=== PATIENT | male | born 1975 | race Caucasian/White ===

== ENCOUNTER 2019-02-15 14:58 | Emergency (ER) | payer BC ==
[2019-02-15] MEDS: ONDANSETRON 4 MG INJ IV (17:57)
[2019-02-15] MEDS: SOD CHLORIDE 0.9% 1,000 ML IV ×2 (17:57→18:06)
[2019-02-15] MEDS: LIDOCAINE/MYLANTA 40 ML BTL PO (17:57)
[2019-02-15] MEDS: FAMOTIDINE 20 MG INJ IV (17:57)
[2019-02-15 18:03] LABS: ADD MAN DIFF? NO
[2019-02-15 18:07] LABS: WHITE BLOOD COUNT 14.5 10^3/ul (4.8-10.8)
[2019-02-15 18:08] LABS: ABNORMAL IP MESSAGE 1; BASOPHIL # 0.1 10^3/ul (0.0-0.1); BASOPHILS % 0.4 % (0.0-2.0); EOSINOPHILS % 0.1 % (0.0-7.0); HEMATOCRIT 36.9 % (42.0-52.0); HEMOGLOBIN 10.3 g/dl (14.0-18.0); LYMPHOCYTES # 1.6 10^3/ul (0.8-2.9); LYMPHOCYTES % 10.9 % (15.0-51.0); MEAN CORPUSCULAR HEMOGLOBIN 20.1 pg (29.0-33.0); MEAN CORPUSCULAR HGB CONC 27.9 g/dl (32.0-37.0); MEAN CORPUSCULAR VOLUME 71.9 fl (82.0-101.0); MEAN PLATELET VOLUME 9.2 fl (7.4-10.4); MONOCYTE # 0.8 10^3/ul (0.3-0.9); MONOCYTES % 5.5 % (0.0-11.0); NEUTROPHIL # 11.9 10^3/ul (1.6-7.5); NEUTROPHILS % 82.3 % (39.0-77.0); PLATELET COUNT 412 10^3/UL (140-415); POSITIVE DIFF @See below; RED BLOOD COUNT 5.13 10^6/ul (4.70-6.10); RED CELL DISTRIBUTION WIDTH 17.8 % (11.5-14.5)
[2019-02-15 18:25] LABS: ALANINE AMINOTRANSFERASE 18 IU/L (13-69); ALBUMIN 4.5 g/dl (3.3-4.9); ALBUMIN/GLOBULIN RATIO 1.02; ALKALINE PHOSPHATASE 112 IU/L (42-121); ANION GAP 11 (5-13); ASPARTATE AMINO TRANSFERASE 25 IU/L (15-46); BILIRUBIN,INDIRECT 0.3 mg/dl (0-1.1); BILIRUBIN,TOTAL 0.3 mg/dl (0.2-1.3); BLOOD UREA NITROGEN 7 mg/dl (7-20); CALCIUM 10.4 mg/dl (8.4-10.2); CARBON DIOXIDE 28 mmol/L (21-31); CHLORIDE 105 mmol/L (97-110); CREATININE 0.64 mg/dl (0.61-1.24); Estimated GFR > 60 mL/min (>60); GLUCOSE 108 mg/dl (70-220); LIPASE 52 U/L (23-300); POTASSIUM 4.5 mmol/L (3.5-5.1); SODIUM 144 mmol/L (135-144); TOTAL PROTEIN 8.9 g/dl (6.1-8.1)
[2019-02-15 18:27] LABS: INR 0.91; PROTIME 12.4 Sec (11.9-14.9)
[2019-02-15 18:28] LABS: PARTIAL THROMBOPLASTIN TIME 25.8 Sec (23.0-35.0)
[2019-02-15 18:36] LABS: TROPONIN-I < 0.012 ng/ml (0.000-0.120)
== END 2019-02-15 19:38 | disposition home or self-care (01) ==
LOC: FTE 14:58
DX: K92.0 Hematemesis (principal); R19.7 Diarrhea, unspecified; D64.9 Anemia, unspecified; D72.829 Elevated white blood cell count, unspecified; R07.9 Chest pain, unspecified
CPT/HCPCS: 36415; 71045; 80053; 83690; 84484; 85025; 85610; 85730; 93005; 96374; 96375; 99285-25

== ENCOUNTER 2019-05-05 08:23 | Day surgery (SDC) | payer BC ==
[2019-05-05] MEDS ORDERED: PROPOFOL 20 ML (10:18)
[2019-05-05] MEDS ORDERED: ETOMIDATE 20 MG INJ (10:19)
[2019-05-05] MEDS ORDERED: LIDOCAINE 100 MG SYRINGE (10:19)
== END 2019-05-05 11:08 | disposition home or self-care (01) ==
LOC: GIL 08:23
DX: K22.2 Esophageal obstruction (principal); K20.8 Other esophagitis
CPT/HCPCS: 43239; 88104; 88305; 88312

== ENCOUNTER 2019-06-30 14:53 | Inpatient (IN) | payer BC ==
[2019-06-30 15:26] LABS: ADD MAN DIFF? NO
[2019-06-30] MEDS: PANTOPRAZOLE 40 MG INJ IV (15:28)
[2019-06-30 15:30] LABS: BASOPHIL # 0.1 10^3/ul (0.0-0.1); BASOPHILS % 0.5 % (0.0-2.0); EOSINOPHILS # 0.1 10^3/ul (0.0-0.5); EOSINOPHILS % 0.9 % (0.0-7.0); HEMOGLOBIN 12.7 g/dl (14.0-18.0); LYMPHOCYTES # 2.5 10^3/ul (0.8-2.9); LYMPHOCYTES % 21.2 % (15.0-51.0); MEAN CORPUSCULAR HEMOGLOBIN 24.9 pg (29.0-33.0); MEAN CORPUSCULAR HGB CONC 30.2 g/dl (32.0-37.0); MEAN CORPUSCULAR VOLUME 82.4 fl (82.0-101.0); MEAN PLATELET VOLUME 9.1 fl (7.4-10.4); MONOCYTE # 1.1 10^3/ul (0.3-0.9); MONOCYTES % 9.2 % (0.0-11.0); NEUTROPHILS % 67.9 % (39.0-77.0); PLATELET COUNT 302 10^3/UL (140-415); RED CELL DISTRIBUTION WIDTH 16.4 % (11.5-14.5)
[2019-06-30 15:30] LABS: WHITE BLOOD COUNT 11.8 10^3/ul (4.8-10.8)
[2019-06-30 15:46] LABS: ALANINE AMINOTRANSFERASE 18 IU/L (13-69); ALBUMIN 4.6 g/dl (3.3-4.9); ALBUMIN/GLOBULIN RATIO 1.04; ALKALINE PHOSPHATASE 110 IU/L (42-121); ANION GAP 10 (5-13); ASPARTATE AMINO TRANSFERASE 23 IU/L (15-46); BILIRUBIN,INDIRECT 0.4 mg/dl (0-1.1); BILIRUBIN,TOTAL 0.4 mg/dl (0.2-1.3); BLOOD UREA NITROGEN 6 mg/dl (7-20); CALCIUM 10.7 mg/dl (8.4-10.2); CARBON DIOXIDE 32 mmol/L (21-31); CHLORIDE 98 mmol/L (97-110); CREATININE 0.64 mg/dl (0.61-1.24); Estimated GFR > 60 mL/min (>60); GLUCOSE 109 mg/dl (70-220); POTASSIUM 4.4 mmol/L (3.5-5.1); SODIUM 140 mmol/L (135-144)
[2019-06-30 15:57] LABS: TROPONIN-I < 0.012 ng/ml (0.000-0.120)
[2019-06-30 15:59] LABS: INR 0.94; PROTIME 12.7 Sec (11.9-14.9)
[2019-06-30] MEDS ORDERED: ACETAMINOPHEN 325 MG TAB PO (17:00)
[2019-06-30] MEDS ORDERED: ONDANSETRON 4 MG INJ IV (17:00)
[2019-06-30] MEDS ORDERED: morphine 2 MG INJ IV (18:30)
[2019-07-01] MEDS: PANTOPRAZOLE 40 MG INJ IV (06:42)
[2019-07-01 06:53] LABS: ADD MAN DIFF? NO
[2019-07-01 06:55] LABS: BASOPHIL # 0.1 10^3/ul (0.0-0.1); BASOPHILS % 0.6 % (0.0-2.0); EOSINOPHILS # 0.2 10^3/ul (0.0-0.5); EOSINOPHILS % 1.9 % (0.0-7.0); HEMATOCRIT 39.3 % (42.0-52.0); HEMOGLOBIN 11.9 g/dl (14.0-18.0); LYMPHOCYTES # 2.3 10^3/ul (0.8-2.9); LYMPHOCYTES % 29.6 % (15.0-51.0); MEAN CORPUSCULAR HEMOGLOBIN 25.1 pg (29.0-33.0); MEAN CORPUSCULAR HGB CONC 30.3 g/dl (32.0-37.0); MEAN CORPUSCULAR VOLUME 82.9 fl (82.0-101.0); MEAN PLATELET VOLUME 9.9 fl (7.4-10.4); MONOCYTE # 0.9 10^3/ul (0.3-0.9); MONOCYTES % 11.7 % (0.0-11.0); NEUTROPHIL # 4.4 10^3/ul (1.6-7.5); NEUTROPHILS % 55.9 % (39.0-77.0); PLATELET COUNT 282 10^3/UL (140-415); RED BLOOD COUNT 4.74 10^6/ul (4.70-6.10); RED CELL DISTRIBUTION WIDTH 16.4 % (11.5-14.5)
[2019-07-01 06:55] LABS: WHITE BLOOD COUNT 7.9 10^3/ul (4.8-10.8)
[2019-07-01 07:31] LABS: ANION GAP 5 (5-13); BLOOD UREA NITROGEN 7 mg/dl (7-20); CALCIUM 9.3 mg/dl (8.4-10.2); CARBON DIOXIDE 29 mmol/L (21-31); CHLORIDE 106 mmol/L (97-110); CREATININE 0.59 mg/dl (0.61-1.24); Estimated GFR > 60 mL/min (>60); GLUCOSE 94 mg/dl (70-220); POTASSIUM 4.4 mmol/L (3.5-5.1); SODIUM 140 mmol/L (135-144)
[2019-07-01] MEDS ORDERED: LIDOCAINE 2% (SDV) 5 ML INJ ×2 (13:18→13:40)
[2019-07-01] MEDS ORDERED: PROPOFOL 20 ML ×2 (13:18→13:40)
== END 2019-07-01 19:24 | disposition home or self-care (01) | DRG 379 ==
LOC: E/R 14:53 → 2NE 16:37
PROVIDERS: Internal Medicine
PROC: 0DJ08ZZ Inspection of Upper Intestinal Tract, Via Natural or Artificial Opening Endoscopic (ICD-10-PCS; principal; 2019-07-01 12:30)
DX: K92.0 Hematemesis (principal); R13.10 Dysphagia, unspecified; K22.2 Esophageal obstruction
CPT/HCPCS: 36415; 80048; 80053; 84484; 85025; 85610; 85730; 86850; 86900; 86901; 93005; 96374; 99285-25